=== PATIENT | male | born 1990 | race Caucasian/White ===

== ENCOUNTER → 2017-07-02 | Day surgery (SDC) | payer OTHER ==
[2017-07-02] VITALS (9 sets, daily range): BP systolic 111–141; BP diastolic 60–84; PULSE 86–110; RESP 12–27; O2SAT 90–96
[~2017-07-02] VITALS: Ht 167.6 cm; Wt 100.1 kg
[~2017-07-02] MED LIST: Bupivacaine-MPF 0.5% 30 mL Inj INFILTRATE ONE; CeFAZolin 2 Gm/50 mL D5W Duplex Bag IV ONE; CeFAZolin 2 Gm/50 mL D5W IV Premix IV ONE; Dexamethasone 4 mg/mL Inj IVPUSH PRN; Dexamethasone 4 mg/mL Inj ONE; EPHEDrine Sulfate 50 mg/mL Inj IVPUSH PRN; HYDROcodone-APAP 5-325 mg Tablet PO PRN; HYDROmorphone 1 mg/mL Inj IVPUSH PRN; Ketamine 10 mg/mL 20 mL Inj ONE; Labetalol 5 mg/mL 4 mL Inj IV PRN; Lactated Ringer's 1,000 ML IV SCH; Lactated Ringer's 500 ML IV PRN; MetoCLOpramide 5 mg/mL 2 mL Inj IVPUSH PRN; Ondansetron 2 mg/mL 2 mL Inj IVPUSH PRN; Ondansetron 2 mg/mL 2 mL Inj ONE; Ondansetron 8 mg ODT Tablet PO PRN; Phenylephrine 10,000 mCg/mL Inj IVPUSH PRN; Propofol 10 mg/mL 20 mL Inj ONE; fentaNYL-PF 50 mCg/mL 2 mL Inj IVPUSH PRN; fentaNYL-PF 50 mCg/mL 2 mL Inj ONE; hydrALAZINE 20 mg/mL Inj IVPUSH PRN
[2017-07-02] MEDS: Lactated Ringer's 1,000 ML IV SCH ×2 (07:24→09:21)
--- NOTE | 2017-07-02 11:23 | PCM.HPANE ---
Patient Data Date of Service: Jul 02, 2017 Surgeon Admitting Provider: Attending Provider:Shelli Burns MD Primary Care Physician:Ambrocio Piña Other Provider:Christine Carlin Anesthesia Reason for Visit Left Testicular Mass Ht/WT & BMI Height (Feet): 5 Height (Inches): 6 Weight (Kilograms): 100.1 Body Mass Index 35.00 Allergies Coded Allergies: No Known Allergies (Unverified , 06/25/17) Past Anesthesia History Anesthesia History: Denies:: Abnormal Airway, Anesthesia Reactions (no prior ) , Difficult Intubation, Fam Anesthesia Reaction Diabetes History Hx Diabetes?: No MRSA MRSA: No Medications Hypertension Medication: No Home Meds Incl Beta Kyle: No No Active Prescriptions or Reported Meds History History of ENT Problems?: No HEENT History: Denies:: Abnormal Airway Cataracts Difficult Intubation Dysphagia Glaucoma Hearing Problem Sinus Problem TMJ Denture Type: None Teeth Condition: Within Normal Limits Hx of Heart Problems?: No Cardiovascular History: Denies:: AICD Abdominal Aortic Aneurism Atrial Fibrillation Cardiac Surgery Chest Pain Congestive Heart Failure Edema Heart Murmur Hypertension Irregular Heartbeat Pacemaker Peripheral Vascular Hx of Respiratory Problem?: No Respiratory History: Denies:: Asthma COPD Emphysema Oxygen Administration Pneumonia (remote (as a child)) Tuberculosis Use of C-PAP Machine Use of Inhalers / NEBS Hx Neurologic Problems?: No Neurological History: Denies:: Alzheimer's Disease CVA Dementia Dizziness Headaches Multiple Sclerosis Parkinson's Disease Seizures TIA Hx of GI Problems?: No Hx of Problems?: No Genitourinary History: Denies:: Kidney Stones Urinary Tract Infection Male Hx: Positive for:: Scrotal Mass (left current admission problem) Denies:: Prostate Problems Skin History: Denies:: History Skin Disorders? Pressure Ulcers Hx Musculoskeletal Problems?: No Musculoskeletal History: Denies:: Back Injury Degenerative Joint Fibromyalgia Joint Replacement Musculoskeletal Trauma Myasthenia Gravis Osteoarthritis Rheumatoid Arthritis Hx of Psycho/Social Problems?: No Psycho Social History: Denies:: Anxiety Hx Depression Hx Surgeries?: No (no prior surgery) Hx Any Other Health Problems?: Yes Other History: Denies:: Cancer Thyroid Disease History Blood Transfusions: Positive for:: Accept Blood Products? Denies:: Blood Transfusions Hx Diabetes: No Hx Alcohol Use: YesAlcoholic Drinks Per Day: 2 drinks monthlyHx Substance Use : NoHave You Smoked inLast 12 mo: No Stop/Bang Treated for Sleep Apnea?: No Do You Have a CPAP Machine?: No S-Snoring: Do You Snore Loudly: No T-Tired: feel tired, fatigued: No O-Obsered: Observed not breath: No P-Blood Pressure: treated: No B- Body Mass Index > 35 kg/m2: Yes A- Age over 50: No N- Neck Large Circumference: No G- Gender Male: Yes RAYMUNDO Total Score: 2 RAYMUNDO Risk Assessment: Low Risk, <3 Yes Risk Assessment Category Category 1A: Patient has history of documented sleep apnea, and HAS NOT received any narcotic, sedative or anesthesia administration during this stay. Category 1B: Patient has history of documented sleep apnea, and HAS received any narcotic , sedative or anesthesia administration during this stay Category 2: Patient has SUSPECTED Obstructive Sleep Apnea, and HAS received any narcotic , sedative or anesthesia administration during this stay. Category 3: Patient has SUSPECTED Obstructive Sleep Apnea and HAS NOT received narcotic, sedative or anesthesia administration during this stay. Category 4: Outpatient in Procedural Areas with known sleep apnea or who screen positive for High Risk via the STOP/BANG questionnaire. Exam Exam Vital Signs Vital Signs Date Time Temp Pulse Resp B/P Pulse Ox O2 Delivery O2 Flow Rate FiO2 07/02/17 11:15 36.5 86 12 111/84 95 Room Air 07/02/17 11:00 87 12 127/72 94 Room Air 07/02/17 10:55 36.5 95 17 131/71 94 Room Air 07/02/17 10:40 87 18 125/68 95 Nasal Cannula 4 07/02/17 10:35 95 20 133/60 94 Nasal Cannula 4 07/02/17 10:30 110 27 131/66 90 Nasal Cannula 2 07/02/17 10:27 36.3 106 22 129/65 93 Room Air 07/02/17 07:47 36.8 96 16 141/73 93 Room Air General Appearance: Alert, Oriented X3, Cooperative, No Acute Distress HEENT/AIRWAY: MP 2 Lungs: Clear to Auscultation, Normal Air Movement Heart: Exam Unremarkable, Regular Rate/Rhythm, No Murmurs/Rubs/Gallops Meds/Labs/Diagnostics Admission Meds Current Medications Cefazolin Sodium/ Dextrose 2 gm/ Premix 50 ml @ 100 mls/hr PREOP ONCE IV Last administered on 07/02/17 09:31; Start 07/02/17 at 06:00; Stop 07/02/17 at 06:29; Status DC Lactated Ringer's (Lr) 1,000 ml @ 120 mls/hr Q8H20M IV Last administered on 09:21; Start 07/02/17 at 05:00; Stop 07/02/17 at 13:19 Bupivacaine HCl (Sensorcaine-MPF 0.5% Inj) 30 ml STK-MED ONCE INFILTRATE Last administered on 07/02/17 09:47; Start 07/02/17 at 09:47; Stop 07/02/17 at 09:52 ; Status DC Plan Impression Patient chart reviewed, patient interviewed and anesthestic plan with risks, benefits, and alternatives discussed, and informed consent obtained. NPO per Anesth. Guidelines: Yes ASA Physical Status: ASA3 Severe Disease Anesthetic Plan: GA Bene/Risks/Altern/Consents: Yes HP Complete Prior to Induction: Yes Aly Hong MD Jul 02, 2017 11:23
--- NOTE | 2017-07-02 11:25 | PCM.ANEP1 ---
Post Anesthesia PACU Phase 1 Assessment Date of Service: Jul 02, 2017 Vital Signs Vital Signs Date Time Temp Pulse Resp B/P Pulse Ox O2 Delivery O2 Flow Rate FiO2 07/02/17 11:15 36.5 86 12 111/84 95 Room Air 07/02/17 11:00 87 12 127/72 94 Room Air 07/02/17 10:55 36.5 95 17 131/71 94 Room Air 07/02/17 10:40 87 18 125/68 95 Nasal Cannula 4 07/02/17 10:35 95 20 133/60 94 Nasal Cannula 4 07/02/17 10:30 110 27 131/66 90 Nasal Cannula 2 07/02/17 10:27 36.3 106 22 129/65 93 Room Air 07/02/17 07:47 36.8 96 16 141/73 93 Room Air Anesthetic Administered: GA Level of Alertness: Sleepy, easy to arouse Pain: No Nausea or Vomiting: No CV Function & Hydration Stable: Yes Airway Device: Oxygen Delivery: Room Air Lungs: Clear to Auscultation, Normal Air Movement PACU Phase 2 Assessment Complications: No Follow up Care: No Patient Instructions Provided: N/A Aly Hong MD Jul 02, 2017 11:25
--- NOTE | 2017-07-03 14:47 | OP ---
[address] [address] OPERATIVE REPORT PATIENT: JOAQUIM ROBLES : 1990 MR#: [id number] ADMIT: 07/02/2017 JOB ID: [id number] DATE OF SURGERY: 07/02/2017 PROCEDURE NAME: Left radical orchiectomy. SURGEON: Shelli Burns MD. ANESTHESIA: General. PREOPERATIVE DIAGNOSIS(ES): Left testis mass proven on ultrasound and easily palpable and visible. POSTOPERATIVE DIAGNOSIS(ES): Left testis mass proven on ultrasound and easily palpable and visible. INDICATIONS: The patient is a 26-year-old gentleman who presented. Was seen by urology PA. Found to have above-mentioned findings of solid mass concerning for testis neoplasm. He was counseled about risks, benefits, and set up for a radical orchiectomy with the understanding that this would lead to pathology and likely further treatment recommendations and wished to proceed. PROCEDURE IN DETAIL: After appropriate informed consent was obtained, the patient was brought to the operating room. He received IV Ancef prior to onset of the procedure. He was made comfortable in supine position. All pressure points carefully padded. Cleaned, prepped, and draped in the usual sterile fashion. A groin incision was made on the left side, similar to a hernia incision transverse. We dissected carefully down to the level of the fascia. We did not enter this. We were able to gently manipulate the testis itself up and through the inguinal canal into the wound itself. We then were able to strip back carefully the gubernaculum. It was removed sharply and bluntly. Hemostasis was achieved with electrocautery. We had a good long length of cord. Once this was completely cleared off and our hemostasis was good the patient's scrotum was in normal position. We used two heavy Maricarmen clamps. Towels were placed underneath the surface of the testis. We cut between the clamps, freeing the testis and handed the testis and distal cord off to the back table. We then used 0 silk stick ties, divided to the cord, also 0 free tie and free ties to medial and lateral segments of the cord. Hemostasis was excellent. This was observed for several minutes. We irrigated the wound out copiously with antibiotic solution. We used lidocaine with epinephrine for postop wound pain control. The cord was allowed to proceed up into the inguinal canal and into the abdominal cavity. The wound itself was closed with a deep layer of 2-0 Vicryl interrupted and then another layer of running 2-0 Vicryl and then a skin layer of 4-0 Monocryl. Benzoin and Steri-Strips were used. Scrotal support was used. Patient tolerated the procedure very well. Was awakened, taken in stable condition to the postanesthesia care unit.
--- NOTE | 2017-07-09 11:10 | PATH ---
SURGICAL PATHOLOGY Attending Physician:Shelli Burns MD CASE STATUS: Signed Out PATIENT NAME: JOAQUIM ROBLES PID: [id number] : 1990 DATE COLLECTED:07/02/2017 16:52 SPECIMEN: Testis, Tumor CLINICAL HISTORY: LEFT TESTICULAR MASS 1). LEFT TESTICLE FINAL DIAGNOSIS: 1.LEFT TESTICLE, RADICAL ORCHIECTOMY: SEMINOMA. SEE CANCER SUMMARY DATA BELOW. CAP CANCER SUMMARY DATA Specimen: Testis, Radical orchiectomy. Specimen Laterality: Left Tumor Focality: Unifocal Tumor Size: 8.6 x 4.5 x 3.5 cm. Histologic Type: Seminoma. Tumor Extension: Limited to the testis without involvement of tunica vaginalis. Margins: Spermatic cord margin: Uninvolved by tumor. Lymphovascular Invasion: No definite lymphovascular invasion identified. See comment. Regional Lymph Nodes: No lymph nodes submitted or found. Pathologic Stage Classification: (AJCC 7th Edition) Primary Tumor: pT1. Regional Lymph Nodes: pNX. ICD10 C62 GROSS DESCRIPTION: The specimen is received in formalin, labeled with the patient's name, sublabeled as left testicle, weighs 127.5 g, and consists of a testis (8.7 x 4.8 x 3.8 cm), epididymis (4.2 x 0.8 x 0.2 cm), attached portion of spermatic CORD (length-4.5 cm, diameter-1.7 x 1.1 cm), and tunica vaginalis. The testis contains a seals-white solid firm rubbery mass (8.6 x 4.5 x 3.5) located 4.3 cm from the resection margin, less than 0.1 cm from the epididymis, and less than 0.1 cm in the tunica albuginea. The mass is partially surrounded by a rim of normal seals spongy parenchyma (up to 0.5 cm thick). The mass appears to be confined within the testis and does not extend through the tunica albuginea. The mass contains multiple focally smooth firm pale yellow areas (0.5 x 0.3 x 0.3 cm-1.4 x 0.8 x 0.5 cm). Ink code: black-resection margin. 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 07/03/17 MICRO DESCRIPTION: Immunohistochemical stains were performed to evaluate the neoplastic cells. The neoplastic cells are diffusely positive for C-KIT, OCT3/4, D2-40, and are negative for Cytokeratin CHRISTIANO and CD30. The control stains show appropriate reactivity. Overall, the morphology and immunohistochemical staining profile supports the above diagnosis. Occasional scattered tumor cells floating in the lymphovascular spaces are identified. However, due to the friable nature of the tumor, it is favored that these cells are carryover from sectioning. Dr. Jackson and Dr. Bravo also reviewed this case and agree with this interpretation. *This test was developed and its performance characteristics determined by [employer]. It has not been cleared or approved by the U. S. Food and Drug Administration. The FDA has determined that such clearance or approval is not necessary. This test is used for clinical purposes. It should not be regarded as investigational or for research. ICD-9 CODES: CPT CODES: 1: 41042, 81235, 12258, 73460, 98906, 65227, 85735 Electronically Signed Out By Janell Young MD Cesar Bravo MD [facility] [address], [place] [address] Technical component performed at [facility], [address], [place], [address]
== END | disposition home or self-care (01) ==
LOC: SAS 07:18
PROVIDERS: ATTEND Urology
DX: C62.92 Malignant neoplasm of left testis, unspecified whether descended or undescended (principal)
CPT/HCPCS: 54530; J0690; J1100; J1885; J2250; J2405; J2704; J3010; J7120